=== PATIENT | female | born 1990 | race Caucasian/White ===

== ENCOUNTER 2021-04-30 19:38 | Emergency (ER) | payer OTHER ==
[2021-04-30] MEDS ORDERED: Ondansetron 4 MG Tab.DIS PO ONE (20:02)
[2021-04-30] MEDS ORDERED: Diphtheria,Pertussis(Acell),Tetanus Vaccine 0.5 ML Syringe IM ONE (20:17)
--- NOTE | 2021-04-30 20:26 | EDM.PDOC ---
ED HPI GENERAL MEDICAL PROBLEM - General Chief Complaint: Skin Complaint Stated Complaint: SPLINTER UNDER NAIL ON L HAND Time Seen by Provider: 04/30/21 19:56 Source of Information: Reports: Patient History Limitations: Reports: No Limitations - History of Present Illness INITIAL COMMENTS - FREE TEXT/NARRATIVE: Reaching for a backpack in slid her hand on the wall which was made of wood in forced a splinter into the left ring finger underneath the nail. Patient came to the ER shortly after the incident when she was unable to remove the sliver after she had clipped her nails to try to get it out. 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: - Past Surgical History HEENT Surgical History: Reports: Adenoidectomy, Tonsillectomy Female Surgical History: Reports: D&C Other Female Surgeries/Procedures: tubal Social & Family History - Tobacco Use Tobacco Use Status *Q: Never Tobacco User - Caffeine Use Caffeine Use: Reports: Energy Drinks - Recreational Drug Use Recreational Drug Use: No ED ROS GENERAL - Review of Systems Review Of Systems: See Below Constitutional: Reports: No Symptoms Musculoskeletal: Reports: No Symptoms Skin: Reports: Wound (Splinter underneath left ring finger nail) Neurological: Reports: No Symptoms Psychiatric: Reports: No Symptoms ED EXAM, SKIN/RASH Exam: See Below Exam Limited By: No Limitations General Appearance: Alert, WD/WN, No Apparent Distress Respiratory/Chest: No Respiratory Distress, Lungs Clear Cardiovascular: Normal Peripheral Pulses, Regular Rate, Rhythm Extremities: Normal Range of Motion, Redness (Irritation with splinter under left ring finger). No: Non-Tender Neurological: Alert, Oriented, CN II-XII Intact Skin: Warm, Dry, Wound/Incision (2 cm splinter underneath left ring finger nail) ED SKIN PROCEDURES - Laceration/Wound Repair Left Digit - 4th (Ring) Appearance: Superficial Local Anesthesia - Lidocaine (Xylocaine): 1% Plain Local Anesthetic Volume: 2cc Saline Irrigation (cc's): 0 Exploration/Debridement/Repair: Foreign Material Removed Tetanus Status Addressed: Yes Progress/Comments: Patient provided verbal permission to remove splinter underneath left ring finger nail. 1% lidocaine without epi applied 2 cc digital block to ring finger. Splinter forceps utilized to remove splinter cleanly. Tetanus addressed and it is time for patient to have tetanus shot. Patient provided permission to give tetanus shot. Patient tolerated procedure without difficulty. Patient instructed in wound care keep elevated to prevent throbbing. Course - Vital Signs Last Recorded V/S: Last Vital Signs Temp 36.6 C 04/30/21 20:09 Pulse 89 04/30/21 20:09 Resp 16 04/30/21 20:09 BP 133/85 04/30/21 20:09 Pulse Ox 99 04/30/21 20:09 - Orders/Labs/Meds Meds: Medications Discontinued Medications Generic Name Dose Route Start Last Admin Trade Name Jose PRN Reason Stop Dose Admin Diphtheria/Tetanus/Acell Pertussis 0.5 ml 04/30/21 20:17 04/30/21 20:39 Diphtheria,Pertussis(Acell),Tetanus Vaccine 0.5 Ml Syringe IM 04/30/21 20:18 0.5 ml .ONCE ONE Administration Lidocaine HCl 5 ml 04/30/21 19:55 04/30/21 20:01 Lidocaine 1% 5 Ml Sdv INJECT 04/30/21 19:56 5 ml ONETIME ONE Administration Ondansetron HCl 4 mg 04/30/21 20:02 04/30/21 20:39 Ondansetron 4 Mg Tab.Dis PO 04/30/21 20:03 4 mg ONETIME ONE Administration Tetanus booster provided. Lidocaine 4 numbing agent. Ondansetron provided due to nausea with pain. - Re-Assessments/Exams Free Text/Narrative Re-Assessment/Exam: 04/30/21 20:31 Patient comfortable after splinter removal Departure - Departure Time of Disposition: 20:42 Disposition: Home, Self-Care 01 Clinical Impression: Superficial foreign body (sliver) - Discharge Information *PRESCRIPTION DRUG MONITORING PROGRAM REVIEWED*: Not Applicable *COPY OF PRESCRIPTION DRUG MONITORING REPORT IN PATIENT GRISELDA: Not Applicable Instructions: Sliver Removal, Care After Referrals: PCP,None [Primary Care Provider] - Forms: ED Department Discharge Additional Instructions: Patient instructed in wound care and signs and symptoms of infection to report. Patient to follow-up in clinic if she has any further questions or problems. Or ER Sepsis Event Note (ED) - Evaluation Sepsis Screening Result: No Definite Risk - Focused Exam Vital Signs: Vital Signs Temp Pulse Resp BP Pulse Ox 04/30/21 20:09 36.6 C 89 16 133/85 99 04/30/21 19:55 36.6 C 89 16 133/85 99
== END 2021-04-30 20:43 | disposition home or self-care (01) ==
LOC: JP.ED 19:38
DX: S60.455A Superficial foreign body of left ring finger, initial encounter (principal); Z23 Encounter for immunization; W45.8XXA Other foreign body or object entering through skin, initial encounter
CPT/HCPCS: 90471; 90715; 99283; A9270